=== PATIENT | female | born 1965 | race American Indian/Alaskan Native ===

== ENCOUNTER 2016-04-01 13:43 | Outpatient (CLI) | payer MEDICARE ==
[2016-04-01 13:59] LABS: Basophils % (Auto) 1.3 % (0.0-1.8); Hematocrit 37.1 % (30.3-42.9); Hemoglobin 11.6 gm/dl (10.1-14.3); Mean Corpuscular HGB Conc 31 % (30-34); Mean Corpuscular Volume 82 fl (79-97); Platelet Count 289 K/mm3 (140-440); Red Blood Count 4.55 M/mm3 (3.65-5.03); Red Cell Distribution Width 14.5 % (13.2-15.2); White Blood Count 4.5 K/mm3 (4.5-11.0)
[2016-04-01 14:03] LABS: Mean Corpuscular Hemoglobin 26 pg (28-32)
[2016-04-01 14:28] LABS: Alanine Aminotransferase 11 units/L (7-56); Albumin 3.8 g/dL (3.9-5); Alkaline Phosphatase 166 units/L (35-129); Anion Gap 17 mmol/L; BUN/Creatinine Ratio 18.33; Bilirubin,Total 0.6 mg/dL (0.1-1.2); Blood Urea Nitrogen 11 mg/dL (7-17); Carbon Dioxide 26 mmol/L (22-30); Cholesterol 145 mg/dL (50-199); Glucose 82 mg/dL (65-100); HDL Cholesterol 95 mg/dL (40-59); LDL Cholesterol,Direct 42 mg/dL (50-130); Potassium 4.6 mmol/L (3.6-5.0); Sodium 140 mmol/L (137-145); Total Protein 7.6 g/dL (6.3-8.2); Triglycerides 41 mg/dL (2-149)
== END 2016-04-01 13:44 | disposition home or self-care (01) ==
LOC: LABHHL 13:43
PROVIDERS: ATTEND Specialist
DX: Z00.00 Encounter for general adult medical examination without abnormal findings (principal); K30 Functional dyspepsia; D50.9 Iron deficiency anemia, unspecified; E61.8 Deficiency of other specified nutrient elements
CPT/HCPCS: 36415; 80053; 80061; 84443; 85025

== ENCOUNTER 2016-04-01 14:25 | Emergency (ER) | payer MEDICARE ==
--- NOTE | 2016-04-01 16:45 | Emergency Department Report ---
Chief Complaint: GI Bleed Stated Complaint: RECTAL BLEEDING/ABD PAIN - HPI History of Present Illness: Patient c/o sharp/crampy type upper abdominal pain x 3 days and rectal bleed since yesterday. States has burning feeling in stomach and passing dark-colored stool. Reports gastric bypass 10/2012. States seen by bariatric specialist for abd pain and was supposed to have CT abdomen done today before she started passing blood. Reports fever, nausea, weakness. Denies chills, vomit, chest pain, SOB. LMP Hysterectomy 1999 - Exam Vital Signs: Vital Signs 04/01/16 15:11 Temperature 98.5 F Pulse Rate 58 L Respiratory 20 Rate Blood Pressure 147/101 O2 Sat by Pulse 100 Oximetry Physical Exam: General: pale-appearing. NAD. Abdomen: epigastric tenderness. MSE screening note: Focused history and physical exam performed. Due to findings the following was ordered: ED Medical Decision Making - Medical Decision Making Patient to see MD in main ED. ED Disposition for MSE Condition: Stable Forms: Accompanied Note
[2016-04-01 17:50] LABS: Basophils % (Auto) 1.2 % (0.0-1.8); Eosinophils % (Auto) 1.2 % (0.0-4.3); Hematocrit 37.8 % (30.3-42.9); Hemoglobin 11.9 gm/dl (10.1-14.3); Mean Corpuscular HGB Conc 32 % (30-34); Mean Corpuscular Hemoglobin 26 pg (28-32); Mean Corpuscular Volume 83 fl (79-97); Platelet Count 273 K/mm3 (140-440); Red Blood Count 4.58 M/mm3 (3.65-5.03); Red Cell Distribution Width 14.4 % (13.2-15.2); White Blood Count 5.1 K/mm3 (4.5-11.0)
--- NOTE | 2016-04-01 17:52 | Cat Scan Report ---
FINAL REPORT PROCEDURE: CT abdomen and pelvis without contrast. TECHNIQUE: Computerized axial tomography of the abdomen and pelvis was performed without intravenous contrast. This study is performed without intravascular contrast material and its sensitivity for abdominal and pelvic pathology, including neoplasms, inflammation, abscess, free fluid, thrombosis, arterial dissection and infarction, is reduced compared with a contrast enhanced study. HISTORY: Epigastric abdominal pain, rectal bleeding. COMPARISON: No prior studies are available for comparison. FINDINGS: The lung bases are clear. There are no pleural effusions. The heart size is normal. The liver, spleen and pancreas are grossly normal. Cholecystectomy clips are present. There is no biliary dilatation. The adrenal glands are not enlarged. Both kidneys appear normal in size and configuration. The abdominal aorta has a normal caliber. There is no retroperitoneal adenopathy. There are numerous surgical niels in the stomach. There are some intestinal niels in the jejunum. A normal appendix is visible. The bladder is unremarkable. The uterus has been removed. The regional skeleton appears intact. 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 IMPRESSION: Previous cholecystectomy and gastrointestinal surgery. Previous hysterectomy. No evidence of acute disease in the abdomen or pelvis.
[2016-04-01 18:13] LABS: Alanine Aminotransferase 12 units/L (7-56); Albumin 3.9 g/dL (3.9-5); Alkaline Phosphatase 171 units/L (35-129); Anion Gap 17 mmol/L; Bilirubin,Total 0.8 mg/dL (0.1-1.2); Blood Urea Nitrogen 10 mg/dL (7-17); Calcium 9.3 mg/dL (8.4-10.2); Carbon Dioxide 24 mmol/L (22-30); Chloride 99.9 mmol/L (98-107); Glucose 81 mg/dL (65-100); Lipase 22 units/L (13-60); Potassium 4.1 mmol/L (3.6-5.0); Sodium 137 mmol/L (137-145); Total Protein 7.9 g/dL (6.3-8.2)
--- NOTE | 2016-04-02 00:01 | Emergency Department Report ---
HPI - General Chief Complaint: GI Bleed Time Seen by Provider: 04/01/16 23:38 - HPI HPI: This is a 50-year-old Afro-Citizen Of [place] female who presents to the emergency department, sent in by her bariatric surgeon, for evaluation of her left-sided abdominal pain. The pain is currently 7 out of 10 in intensity, aching and has been constant for the past 2 days. She denies any problems with bowel or bladder, numbness, fever, dysuria, vaginal bleeding or discharge. She is not taken anything for symptoms prior to presentation. No recent travel or sick contacts at home. She has a past medical history of diverticulosis, bariatric surgery, cholecystectomy, asthma, CVA, hypertension. Her primary care doctor is Dr. Mckeon. ED Past Medical Hx - Past Medical History Previous Medical History?: Yes Hx Hypertension: Yes Hx CVA: Yes Hx Seizures: Yes Hx Asthma: Yes Additional medical history: diverticulitis - Surgical History Past Surgical History?: Yes Hx Cholecystectomy: Yes Hx Breast Surgery: Yes (Right mastectomy) Additional Surgical History: hernia repair x 10, Cystectomy - Social History Smoking Status: Never Smoker Substance Use Type: Prescribed - Medications Home Medications: Home Medications Medication Instructions Recorded Confirmed Last Taken Type HYDROcodone/APAP 5-325 [Turner 1 each PO Q6HR PRN #14 tablet 04/02/16 Unknown Rx 5/325] ED Review of Systems ROS: Stated complaint: RECTAL BLEEDING/ABD PAIN Other details as noted in HPI Comment: All other systems reviewed and negative Constitutional: denies: chills, fever Eyes: denies: eye pain, eye discharge, vision change ENT: denies: ear pain, throat pain Respiratory: denies: cough, shortness of breath, wheezing Cardiovascular: denies: chest pain, palpitations Gastrointestinal: abdominal pain. denies: nausea, vomiting Genitourinary: denies: urgency, dysuria, discharge Musculoskeletal: denies: back pain, joint swelling, arthralgia Skin: denies: rash, lesions Neurological: denies: headache, weakness, paresthesias Physical Exam - Physical Exam Vital Signs: Vital Signs 04/01/16 04/01/16 04/01/16 15:11 22:09 23:49 Temperature 98.5 F 98.2 F Pulse Rate 58 L 71 Respiratory 20 18 12 Rate Blood Pressure 147/101 Blood Pressure 141/100 [Left] O2 Sat by Pulse 100 100 99 Oximetry Physical Exam: GENERAL: The patient is well-developed well-nourished. HEENT: Normocephalic. Atraumatic. Extraocular motions are intact. Patient has moist mucous membranes. Pupils equal reactive to light bilaterally. NECK: Supple. Trachea is midline. CHEST/LUNGS: Clear to auscultation. There is no respiratory distress noted. HEART/CARDIOVASCULAR: Regular. There is no tachycardia. There is no gallop rub or murmur. ABDOMEN: Abdomen is soft. Tenderness to palpation to the left side of the abdomen. No guarding rebound tenderness. No peritoneal signs. Patient has normal bowel sounds. There is no abdominal distention. SKIN: There is no rash. There is no edema. There is no diaphoresis. NEURO: The patient is awake, alert, and oriented. The patient is cooperative. The patient has no focal neurologic deficits. The patient has normal speech. MUSCULOSKELETAL: There is no tenderness or deformity. There is no limitation range of motion. There is no evidence of acute injury. ED Course Vital Signs 04/01/16 04/01/16 04/01/16 15:11 22:09 23:49 Temperature 98.5 F 98.2 F Pulse Rate 58 L 71 Respiratory 20 18 12 Rate Blood Pressure 147/101 Blood Pressure 141/100 [Left] O2 Sat by Pulse 100 100 99 Oximetry ED Medical Decision Making - Lab Data Result diagrams: 04/01/16 17:30 04/01/16 17:30 - Radiology Data Radiology results: report reviewed CT of the abdomen and pelvis with IV contrast shows a previous cholecystectomy and gastrointestinal surgery. Previous hysterectomy. No evidence of acute disease the abdomen or pelvis. - Medical Decision Making This is a 50-year-old female presents the emergency department with a 2 day history of left-sided abdominal pain and some rectal bleeding. Patient's vital signs up in stable throughout her ED course. Her labs have been unremarkable including no signs of infection in the blood, electrolyte abnormalities, renal insufficiency or glucose abnormalities. Her belly labs are normal as well including bilirubin, lipase and LFTs. A CT of the abdomen and pelvis with IV contrast was done that did not show any acute abdominal pelvic process. A rectal exam was done that did not show any lesions and she was negative for stool guaiac testing. No gross blood seen. Patient has a primary care doctor and a bariatric surgeon already. She'll be discharged home with some pain medication and encouraged follow-up with these physicians. The plan was to check the patient for a possible urinary tract infection as well with her abdominal discomfort. She had left some urine to be tested through triage but we were unable to find it and it was many hours ago. Requested for a another urine sample but the patient says that she cannot be bothered with drinking any water or waiting for the ability to leave more urine and we'll just have her primary care doctor check it. She will return to the ER with any worsening of her symptoms or any acute distress. Vital signs stable throughout her ED course. - Differential Diagnosis diverticulosis, diverticulitis, malignancy, colitis Critical Care Time: No Critical care attestation.: If time is entered above; I have spent that time in minutes in the direct care of this critically ill patient, excluding procedure time. ED Disposition Clinical Impression: Rectal bleeding Abdominal pain Qualifiers: Abdominal location: unspecified location Qualified Code(s): R10.9 - Unspecified abdominal pain Disposition: DISCHARGED TO HOME OR SELFCARE Is pt being admited?: No Does the pt Need Aspirin: No Condition: Stable Instructions: Abdominal Pain (ED), Rectal Bleeding (ED) Additional Instructions: Please follow-up with your primary care doctor and bariatric surgeon regarding your abdominal pain and rectal bleeding. I have also given you a referral for a local city dispatcher, Dr. Pritchett, to follow up for rectal bleeding as you may need a colonoscopy in the future. Return to the emergency department with any worsening of your symptoms or any acute distress. You've been prescribed a medication that is sedating. Therefore this medication cannot be mixed with alcohol, or taken prior to driving, working, or being responsible for children. Prescriptions: HYDROcodone/APAP 5-325 [Turner 5/325] 1 each PO Q6HR PRN #14 tablet PRN Reason: Pain Referrals: CHERYL MCKEON JR, MD [Primary Care Provider] - 3-5 Days ANAY PRITCHETT MD [Staff Physician] - 3-5 Days Forms: Accompanied Note Time of Disposition: 00:54
[2016-04-02] MEDS ORDERED: PERCOCET 5/325 PO ONE (00:03)
[2016-04-02 01:03] VITALS: BP 136/84
== END 2016-04-02 01:05 | disposition home or self-care (01) ==
LOC: ED 14:25
DX: K62.5 Hemorrhage of anus and rectum (principal); R10.9 Unspecified abdominal pain; I10 Essential (primary) hypertension; I63.9 Cerebral infarction, unspecified; R56.9 Unspecified convulsions; J45.909 Unspecified asthma, uncomplicated; K57.92 Diverticulitis of intestine, part unspecified, without perforation or abscess without bleeding; Z90.49 Acquired absence of other specified parts of digestive tract
CPT/HCPCS: 36415; 74176; 80053; 83690; 85025; 85610; 85730; 86850; 86900; 86901